=== PATIENT | female | born 1965 | race Hispanic/Latino ===

== ENCOUNTER → 2019-10-08 | Outpatient (CLI) | payer OTHER ==
[~2019-10-08] MED LIST: BIOT10004 PO; IOHEXOL-350 75 ML VIAL IV ONE; MULT-1203 PO; PANT20TA12 PO; THYR15TA PO
== END | disposition home or self-care (01) ==
LOC: RAH 07:05
PROVIDERS: ATTEND Internal Medicine Cardiovascular Disease
DX: I25.10 Atherosclerotic heart disease of native coronary artery without angina pectoris (principal); R07.9 Chest pain, unspecified; J98.11 Atelectasis
CPT/HCPCS: 75574; Q9967